=== PATIENT | male | born 1995 | race Caucasian/White ===

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

== ENCOUNTER → 2018-06-20 | Outpatient (CLI) | payer SELFPAY | LOC: OD 12:47 | PROVIDERS: ATTEND Physician Assistant | DX: B69.89 Cysticercosis of other sites (principal) | CPT/HCPCS: 87070; 87077; 87186; 87205 ==